=== PATIENT | male | born 1965 ===

== ENCOUNTER 2017-08-28 08:12 | Emergency (ER) | payer OTHER ==
[2017-08-28 08:16] VITALS: PULSE 86; TEMP 98.4
[2017-08-28] MEDS ORDERED: ceFAZolin IV 1 gm in Dextrose 1 GM/50 ML BAG IVPB ONE (08:38)
[2017-08-28] MEDS ORDERED: ceFAZolin 1 gm in NS 1 GM/100 ML BAG IVPB ONE (08:52)
--- NOTE | 2017-08-28 08:52 | C.PDOC ---
History Of Present Illness 52 y/o male, presents to the ER complaining of abscess to left lower leg which has been present for the past 2 weeks. Patient states that he was wearing shorts recently and he noticed that he had cellulitis on his left lower leg. Denies having fever, chills, and other complaints at this time. Of note, [place] from [facility]. Time Seen by Provider: 08/28/17 08:13 Chief Complaint (Nursing): Abnormal Skin Integrity History Per: Patient History/Exam Limitations: no limitations Onset/Duration Of Symptoms: Days Current Symptoms Are (Timing): Still Present Quality Of Symptoms: Painful Severity: Moderate Pain Scale Rating Of: 3 Recent travel outside of the [place]: Yes Additional History Per: Family Past Medical History Reviewed: Historical Data, Nursing Documentation, Vital Signs Vital Signs: Last Vital Signs Temp 98.4 F 08/28/17 10:14 Pulse 86 08/28/17 08:15 Resp 78 H 08/28/17 10:14 BP 126/77 08/28/17 10:14 Pulse Ox 98 08/28/17 10:52 - Medical History PMH: No Chronic Diseases Surgical History: No Surg Hx Family History: States: No Known Family Hx - Social History Hx Alcohol Use: No Hx Substance Use: No - Immunization History Hx Tetanus Toxoid Vaccination: No Hx Influenza Vaccination: No Hx Pneumococcal Vaccination: No Review Of Systems Except As Marked, All Systems Reviewed And Found Negative. Constitutional: Negative for: Fever, Chills Skin: Positive for: Other (abscess to left lower leg) Physical Exam - Physical Exam Appears: Non-toxic, No Acute Distress Skin: Normal Color, Warm, Dry, Other (erythema to left lower leg, warm to touch , large scab below knee of left leg with no actively draining purulent discharge ) Head: Atraumatic, Normacephalic Eye(s): bilateral: Normal Inspection Nose: Normal Oral Mucosa: Moist Neck: Supple Chest: Symmetrical Cardiovascular: Rhythm Regular Respiratory: Normal Breath Sounds, No Rales, No Rhonchi, No Wheezing Extremity: Tenderness (below left knee) Neurological/Psych: Oriented x3, Normal Speech ED Course And Treatment - Laboratory Results Result Diagrams: 08/28/17 08:51 08/28/17 08:51 Lab Interpretation: No Acute Changes O2 Sat by Pulse Oximetry: 98 (RA) Pulse Ox Interpretation: Normal Progress Note: Wound cleaned with NSS and betadine. moderate amounts of pus drained from wound. Treated with ancef 1 gm IV. Patient instructed to follow up at clinic or return to ED if any increase symptoms - Incision & Drainage Of Abscess Prep Used: Sterile Water, Betadine Procedure: Drained Pus Medical Decision Making Medical Decision Making: Plan: --Labs --UA --Ancef IV 1 gm Duplex Disposition Counseled Patient/Family Regarding: Studies Performed, Diagnosis, Need For Followup, Rx Given - Disposition Referrals: [facility] [Outside] [facility] [Outside] [facility] [Outside] [facility] [Outside] Disposition: HOME/ ROUTINE Disposition Time: 10:15 Condition: STABLE Additional Instructions: Follow up at [facility] for further evaluation Return to ED if any increase symptoms Prescriptions: Cephalexin [cephalexin] 500 mg PO Q6 #28 cap Instructions: Cellulitis (Skin Infection), Adult (DC) Forms: [employer] (Malagasy) Print Language: ITALIAN - POA Present On Arrival: None Location Of Wound: left lower leg - Clinical Impression Clinical Impression: Abscess, Cellulitis - PA / CARD RUNNER / Resident Statement MD/DO has reviewed & agrees with the documentation as recorded. - Scribe Statement The provider has reviewed the documentation as recorded by the Trell Patel Provider Attestation All medical record entries made by the Trell were at my direction and personally dictated by me. I have reviewed the chart and agree that the record accurately reflects my personal performance of the history, physical exam, medical decision making, and the department course for this patient. I have also personally directed, reviewed, and agree with the discharge instructions and disposition.
[2017-08-28 09:05] LABS: BASO # 0.1 K/uL (0.0-0.2); BASO % 0.5 % (0.0-2.0); EOS # 0.1 K/uL (0.0-0.7); EOS % 0.8 % (0.0-4.0); HEMOGLOBIN 14.4 g/dL (12.0-18.0); LYMPH # 2.1 K/uL (1.0-4.3); LYMPH % 19.3 % (20.0-40.0); MEAN CELL VOLUME 86.3 fL (80.0-94.0); MEAN CORPUSCULAR HEMOGLOBIN 29.4 pg (27.0-31.0); MEAN CORPUSCULAR HGB CONC 34.1 g/dL (33.0-37.0); MONO # 1.3 K/uL (0.0-0.8); MONO % 12.2 % (0.0-10.0); NEUT # 7.4 K/uL (1.8-7.0); NEUT % 67.2 % (50.0-75.0); NRBC % 0.3 % (0.0-2.0); RBC 4.88 Mil/uL (4.40-5.90); RED CELL DISTRIBUTION WIDTH 14.4 % (11.5-14.5)
[2017-08-28 09:08] LABS: ALB/GLOB RATIO 1.1 (1.0-2.1); ALBUMIN 3.8 g/dL (3.5-5.0); ALT/SGPT 24 U/L (21-72); AST/SGOT 26 U/L (17-59); BLOOD UREA NITROGEN 16 mg/dL (9-20); CALCIUM 9.4 mg/dl (8.6-10.4); GFR AFRICAN-AMERICAN > 60; GFR NON-AFRICAN AMERICAN > 60
[2017-08-28 09:11] LABS: URINE BILIRUBIN NEGATIVE (NEGATIVE); URINE BLOOD 2+ (NEGATIVE); URINE CLARITY Clear (Clear); URINE COLOR Yellow (YELLOW); URINE GLUCOSE (UA) NORMAL (Normal); URINE LEUKOCYTE ESTERASE NEG Leu/uL (Negative); URINE PROTEIN NEGATIVE (NEGATIVE); URINE UROBILINOGEN NORMAL mg/dL (0.2-1.0)
[2017-08-28 10:14] VITALS: BP 126/77; RESP 78
[2017-08-28 10:21] VITALS: O2SAT 98
== END 2017-08-28 10:38 | disposition home or self-care (01) ==
LOC: C.ER 08:12
DX: L02.416 Cutaneous abscess of left lower limb (principal); L03.116 Cellulitis of left lower limb
CPT/HCPCS: 80053; 81001; 85025; 96365; 99284; J0690

== ENCOUNTER 2017-09-18 16:23 | Emergency (ER) | payer OTHER ==
[2017-09-18 16:34] VITALS: BMI 28.5
[2017-09-18 16:37] VITALS: BP 131/84; PULSE 67; RESP 20; TEMP 98.4; O2SAT 100
[2017-09-18] MEDS ORDERED: Enoxaparin 40 mg Syringe SC STA (17:22)
--- NOTE | 2017-09-18 17:26 | C.PDOC ---
History Of Present Illness 52 y/o male s/p left knee abscess I&D on 08/28/17 sent to the ED from medical clinic for evaluation of left leg swelling that developed 1 month ago. Patient denies fever, redness, discharge, calf pain, sensory changes, or any other complaints at this time. Time Seen by Provider: 09/18/17 16:53 Chief Complaint (Nursing): Lower Extremity Problem/Injury History Per: Patient History/Exam Limitations: no limitations Onset/Duration Of Symptoms: Days Current Symptoms Are (Timing): Still Present Severity: Mild Past Medical History Reviewed: Historical Data, Nursing Documentation, Vital Signs Vital Signs: Last Vital Signs Temp 98.4 F 09/18/17 16:33 Pulse 67 09/18/17 16:33 Resp 20 09/18/17 16:33 BP 131/84 09/18/17 16:33 Pulse Ox 100 09/18/17 17:59 - Medical History PMH: No Chronic Diseases Surgical History: No Surg Hx Family History: States: No Known Family Hx - Social History Hx Alcohol Use: No Hx Substance Use: No - Immunization History Hx Tetanus Toxoid Vaccination: No Hx Influenza Vaccination: No Hx Pneumococcal Vaccination: No Review Of Systems Constitutional: Negative for: Fever, Chills Gastrointestinal: Negative for: Nausea, Vomiting, Abdominal Pain, Diarrhea Musculoskeletal: Positive for: Leg Pain (swelling) Skin: Negative for: Rash Neurological: Negative for: Weakness, Numbness Physical Exam - Physical Exam Appears: Well, Non-toxic, No Acute Distress Skin: Warm, Dry, No Rash Eye(s): bilateral: Normal Inspection Oral Mucosa: Moist Cardiovascular: Rhythm Regular Respiratory: Normal Breath Sounds, No Rales, No Rhonchi, No Wheezing Extremity: No Pedal Edema, No Calf Tenderness, Capillary Refill (< 2 sec all digits ), No Deformity, Swelling (mild TTP at proximal left calf ), Other (well healed scar inferior to left patella) Pulses: Left Dorsalis Pedis: Normal, Right Dorsalis Pedis: Normal Neurological/Psych: Oriented x3, Normal Motor, Normal Sensation Gait: Steady ED Course And Treatment O2 Sat by Pulse Oximetry: 100 (RA) Pulse Ox Interpretation: Normal Progress Note: Patient given SC Lovenox in ED, and was instructed to return to ED in the AM for venous doppler. Disposition Counseled Patient/Family Regarding: Diagnosis, Need For Followup - Disposition [facility] [Outside] Disposition: HOME/ ROUTINE Disposition Time: 17:30 Condition: STABLE Additional Instructions: RETURN TOMORROW FOR VENOUS DOPPLER (ULTRASOUND) OF YOUR LEFT LEG REGRESE EL MAANA PARA EL DOPPLER VENOSO (ULTRASONIDO) DE EDUARDO ANABELLANA MELISSADA Forms: [employer] (Surinamese) Print Language: IRISH - POA Present On Arrival: None - Clinical Impression Clinical Impression: Left leg swelling - Scribe Statement The provider has reviewed the documentation as recorded by the Scribmeño Burch All medical record entries made by the Zacharyibe were at my direction and personally dictated by me. I have reviewed the chart and agree that the record accurately reflects my personal performance of the history, physical exam, medical decision making, and the department course for this patient. I have also personally directed, reviewed, and agree with the discharge instructions and disposition.
[2017-09-18] MEDS ORDERED: Enoxaparin 80 mg Syringe ONE (17:33)
== END 2017-09-18 17:40 | disposition home or self-care (01) ==
LOC: C.ER 16:23
DX: M79.89 Other specified soft tissue disorders (principal)
CPT/HCPCS: 96372; 99283; J1650

== ENCOUNTER 2017-09-19 08:36 | Emergency (ER) | payer SELFPAY ==
[2017-09-19 08:37] VITALS: BMI 28.5
[2017-09-19 08:42] VITALS: RESP 18
--- NOTE | 2017-09-19 08:49 | C.PDOC ---
History Of Present Illness 52-year-old male, presents to the emergency department with complaints of leg swelling. Patient has one month Hx of swelling to left lower extremity. He was seen in ED for symptoms yesterday and was told that there might be a possible DVT and told to return for an ultrasound today. He denies trauma, fever, numbness/weakness, chest pain, shortness of breath, or any other associated symptoms. No other complaints at this time. Time Seen by Provider: 09/19/17 08:43 Chief Complaint (Nursing): Lower Extremity Problem/Injury History Per: Patient History/Exam Limitations: no limitations Past Medical History Reviewed: Historical Data, Nursing Documentation, Vital Signs Vital Signs: Last Vital Signs Temp 98.6 F 09/19/17 10:13 Pulse 74 09/19/17 10:13 Resp 18 09/19/17 10:13 BP 127/80 09/19/17 10:13 Pulse Ox 100 09/19/17 12:57 Family History: States: No Known Family Hx - Social History Hx Alcohol Use: No Hx Substance Use: No - Immunization History Hx Tetanus Toxoid Vaccination: No Hx Influenza Vaccination: No Hx Pneumococcal Vaccination: No Review Of Systems Except As Marked, All Systems Reviewed And Found Negative. Constitutional: Negative for: Fever Cardiovascular: Negative for: Chest Pain, Palpitations Respiratory: Negative for: Shortness of Breath Gastrointestinal: Negative for: Nausea, Vomiting Musculoskeletal: Positive for: Other (left leg swelling) Skin: Negative for: Rash Neurological: Negative for: Weakness, Numbness Physical Exam - Physical Exam Appears: Non-toxic, No Acute Distress Skin: Normal Color, Warm, Dry, No Rash Head: Atraumatic Eye(s): bilateral: Normal Inspection, PERRL, EOMI Nose: Normal Oral Mucosa: Moist Lips: Normal Appearing Neck: Normal ROM Cardiovascular: Rhythm Regular, No Murmur Respiratory: Normal Breath Sounds, No Accessory Muscle Use Gastrointestinal/Abdominal: Soft, No Tenderness Extremity: Pedal Edema (scant +1, left lower extremity), No Deformity, No Swelling Neurological/Psych: Oriented x3, Normal Speech ED Course And Treatment O2 Sat by Pulse Oximetry: 100 (RA) Pulse Ox Interpretation: Normal Medical Decision Making Medical Decision Making: Old records reviewed the patient was seen in this ED yesterday for similar symptoms and was informed to return today for Venous duplex Plan: * Venous duplex ordered Venous doppler is negative. On re-exam, the patient is ambulatory in the ED with steady gait. Follow up with the medical doctor/clinic within 1-2 days, Return if worsened. Disposition - Disposition Referrals: [facility] at [facility] [Outside] Disposition: HOME/ ROUTINE Disposition Time: 10:00 Condition: GOOD Additional Instructions: Follow up with the medical doctor/clinic within 1-2 days. Return if worsened. Prescriptions: Compression Socks, Medium [Futuro Restoring] 1 each MC DAILY #2 each Instructions: Dependent Edema (DC) Forms: [employer] (Lao) - POA Present On Arrival: None - Clinical Impression Clinical Impression: Leg edema - Scribe Statement The provider has reviewed the documentation as recorded by the Scribe (Leanne Houston) All medical record entries made by the Scribe were at my direction and personally dictated by me. I have reviewed the chart and agree that the record accurately reflects my personal performance of the history, physical exam, medical decision making, and the department course for this patient. I have also personally directed, reviewed, and agree with the discharge instructions and disposition.
[2017-09-19 10:16] VITALS: BP 127/80; PULSE 74; TEMP 98.6
[2017-09-19 12:27] VITALS: O2SAT 100
--- NOTE | 2017-09-20 09:33 | VASCLAB ---
PROCEDURE: Left Lower Extremity Venous Duplex Exam. HISTORY: Swelling PRIORS: None. TECHNIQUE: Left common femoral, femoral, popliteal and posterior tibial, peroneal and great saphenous veins were evaluated. Flow was assessed with color Doppler, compressibility, assessment of phasic flow and augmentation response. Report prepared by MICHAEL Frank FINDINGS: LEFT: 1. Common Femoral Vein: 1.1. Compressibility - Fully compressible: Thrombus - None : Flow - Phasic: Augmentation -Normal: Reflux - None. 2. Femoral Vein: 2.1. Compressibility - Fully compressible: Thrombus - None: Flow - Phasic: Augmentation -Normal: Reflux - None. 3. Popliteal Vein: 3.1. Compressibility - Fully compressible: Thrombus - None: Flow - Phasic: Augmentation -Normal: Reflux - None. 4. Posterior Tibial Vein: 4.1. Compressibility - Fully compressible: Thrombus - None: Flow - Phasic: Augmentation -Normal: Reflux - None. 5. Peroneal Vein: 5.1. Compressibility - Fully compressible: Thrombus - None: Flow - Phasic: Augmentation -Normal: Reflux - None. 6. Great Saphenous Vein: 6.1. Compressibility - Fully compressible: Thrombus - None: Flow - Phasic: Augmentation - Normal: Reflux - None. OTHER FINDINGS: IMPRESSION: No evidence of deep or superficial vein thrombosis of the left lower extremity with excellent venous flow. Normal valve function noted of the left side. Normal venous flow noted in the right common femoral vein.
== END 2017-09-19 10:24 | disposition home or self-care (01) ==
LOC: C.ER 08:36
DX: R60.0 Localized edema (principal)